=== PATIENT | male | born 1990 | race Caucasian/White ===

== ENCOUNTER 2022-06-19 17:08 | Emergency (ER) | payer MEDICAID, OTHER ==
[~2022-06-19] VITALS: Ht 167.6 cm; Wt 76.0 kg
[2022-06-19 17:20] VITALS: BP 103/76
== END 2022-06-19 22:02 | disposition home or self-care (01) ==
LOC: ER 17:08
DX: M20.012 Mallet finger of left finger(s) (principal); Y93.61 Activity, american tackle football; Z88.0 Allergy status to penicillin; Z98.890 Other specified postprocedural states
CPT/HCPCS: 99281